=== PATIENT | male | born 1995 | race Caucasian/White ===

== ENCOUNTER 2018-09-12 06:13 | Observation (INO) | payer BC, OTHER ==
[2018-09-12] MEDS ORDERED: MORPHINE SULFATE 2 MG/ML SYRINGE IVP STA (06:27)
[2018-09-12] MEDS ORDERED: ASPIRIN 81 MG PO STA (06:27)
[2018-09-12] MEDS ORDERED: ONDANSETRON 4 MG/2 ML VIAL IVP STA (06:27)
[2018-09-12] MEDS ORDERED: NITROGLYCERIN SL TABS 0.4 MG TAB SUBLINGUAL STA (06:27)
--- NOTE | 2018-09-12 06:38 | ED ---
Chest Pain HPI - General Source: patient Mode of arrival: ambulatory Limitations: no limitations - History of Present Illness MD Complaint: chest pain -: hour(s) Onset: during rest Pain Location: substernal, left chest Pain Radiation: LUE, jaw/teeth Severity: moderate Quality: tightness, aching, heaviness Consistency: constant Improves With: nothing Worsens With: nothing Context: other (cocaine) Anginal Symptoms: nausea Treatments Prior to Arrival: none <Farida Garcia - Last Filed: 09/12/18 07:05> <Mohit Garcia - Last Filed: 09/12/18 07:50> - General Chief Complaint: Chest Pain Stated Complaint: chest pain Time Seen by Provider: 09/12/18 06:27 - History of Present Illness Initial Comments: Yo Ellison healthy 23-year-old male presents the emergency department today for evaluation of left-sided chest pain with radiation to his left arm and his jaw. Patient reports that he is usually awake all night because he works nights 3 keeps an eye schedule around 4:30 this morning he was sitting when he began feeling pain in his left shoulder and left chest pain radiating down his left arm and up into his jaw. This made the patient very anxious and he felt like his hands and feet were tingling. Patient became concerned that the pain may be due to his heart so decided to come to the ER for evaluation. Patient has no personal history of cardiac disease he does have a father uncles and grandmother who all had cardiac disease but nobody with any cardiac disease before age of 40. Patient does admit to cigarette smoking daily and occasional cocaine use including cocaine use in the past couple of days. (Farida Garcia) - Related Data Allergies Allergy/AdvReac Type Severity Reaction Status Date / Time No Known Allergies Allergy Verified 09/12/18 07:42 Review of Systems ROS Other: All systems not noted in ROS Statement are negative. <Farida Garcia - Last Filed: 09/12/18 07:05> ROS Other: All systems not noted in ROS Statement are negative. <Mohit Garcia - Last Filed: 09/12/18 07:50> ROS Statement: Those systems with pertinent positive or pertinent negative responses have been documented in the HPI. EKG Findings - EKG Comments: EKG Findings:: EKG was obtained for evaluation of chest pain, EKG obtained at 6:25 AM. EKG with a rate of 1:15 rhythm is narrow complex and regular consistent with sinus tachycardia. There are normal intervals, AR 138, QRS 94, QT 302, QTc is [address] depressions in V2 through V5 as well as T-wave inversion in lead 3. No acute ST elevations. <Farida Garcia - Last Filed: 09/12/18 07:05> Past Medical History Past Medical History: No Reported History History of Any Multi-Drug Resistant Organisms: None Reported Past Surgical History: No Surgical Hx Reported Past Psychological History: No Psychological Hx Reported Smoking Status: Current every day smoker Past Alcohol Use History: Occasional Past Drug Use History: Marijuana <Farida Garcia - Last Filed: 09/12/18 07:05> General Exam Limitations: no limitations <Farida Garcia - Last Filed: 09/12/18 07:05> - General Exam Comments Initial Comments: Physical Exam GENERAL: Patient is well-developed and well-nourished. Patient is nontoxic and well-hydrated Appears anxious and uncomfortable HENT: Normocephalic, Atraumatic. EYES: PERRL, EOMI PULMONARY: Unlabored respirations. No audible rales rhonchi or wheezing was noted. CARDIOVASCULAR: Tachycardic, regular Warm and well-perfused extremities ABDOMEN: Soft and nontender with normal bowel sounds. SKIN: Skin is clear with no lesions or rashes and otherwise unremarkable. Skin is clammy : Deferred NEUROLOGIC: Patient is alert and oriented x3. Moving all extremities spontaneously MUSCULOSKELETAL: Normal extremities with adequate strength and full range of motion. No lower extremity swelling or edema. No calf tenderness. PSYCHIATRIC: Anxious (Farida Garcia) Course <Farida Garcia - Last Filed: 09/12/18 07:05> Vital Signs 09/12/18 06:17 Temperature 99.7 F H Pulse Rate 102 H Respiratory 20 Rate Blood Pressure 151/82 O2 Sat by Pulse 99 Oximetry - Reevaluation(s) Reevaluation #1: Was reevaluated he has received all medications reports he's feeling a little bit better. 09/12/18 07:05 (Farida Garcia) Chest Pain MDM <Farida Garcia - Last Filed: 09/12/18 07:05> <Mohit Garcia - Last Filed: 09/12/18 07:50> - MDM The patient was seen and evaluated history was obtained from the patient the sinuses a 23-year-old male with recent cocaine use presenting with retrosternal left-sided chest pain with radiation to the arm and jaw on evaluation the patient appears uncomfortable he is clammy and tachycardic Labs and imaging were ordered EKG with ST depressions diffusely, no acute ST elevations Cardiac workup ordered ASA, Nitro, Zofran and Morphine ordered CBC/CMP with no significant abnormalities Coags and Trops pending at time of sign out Patient care signed out to Dr Garcia at shift change (Farida Garcia) Chest x-ray shows no acute abnormality (Mohit Garcia) Disposition <Farida Garcia - Last Filed: 09/12/18 07:05> Time of Disposition: 07:50 <Mohit Garcia - Last Filed: 09/12/18 07:50> Clinical Impression: Chest pain Disposition: ADMITTED IP TO THIS HOSP Referrals: Mohit Wills MD [Primary Care Provider] - 1-2 days
[2018-09-12 06:41] LABS: Basophils # (A) 0.1 k/uL (0-0.2); Basophils % (A) 1 %; Eosinophils # (A) 0.3 k/uL (0-0.7); Eosinophils % (A) 2 %; HCT 48.7 % (39.0-53.0); HGB 16.3 gm/dL (13.0-17.5); Lymphocytes # (A) 1.5 k/uL (1.0-4.8); Lymphocytes % (A) 11 %; MCH 29.5 pg (25.0-35.0); MCHC 33.5 g/dL (31.0-37.0); MCV 87.9 fL (80.0-100.0); Mean Platelet Volume 6.8; Monocytes # (A) 0.8 k/uL (0-1.0); Monocytes % (A) 6 %; Neutrophils # (A) 10.4 k/uL (1.3-7.7); Neutrophils % (A) 79 %; Platelet Count 268 k/uL (150-450); RBC 5.54 m/uL (4.30-5.90); RDW 14.4 % (11.5-15.5); WBC 13.2 k/uL (3.8-10.6)
[2018-09-12 06:50] LABS: ALT 57 U/L (21-72); AST 35 U/L (17-59); African American GFR (CKD) >90 (>60 ml/min/1.73 sqM); Albumin 4.7 g/dL (3.5-5.0); Alkaline Phosphatase 86 U/L (38-126); Anion Gap 9 mmol/L; Blood Urea Nitrogen 9 mg/dL (9-20); Calcium 9.6 mg/dL (8.4-10.2); Carbon Dioxide 24 mmol/L (22-30); Chloride 106 mmol/L (98-107); Glucose 137 mg/dL (74-99); Magnesium 2.1 mg/dL (1.6-2.3); Potassium 3.2 mmol/L (3.5-5.1); Sodium 139 mmol/L (137-145); Total Bilirubin 0.7 mg/dL (0.2-1.3); Total Protein 7.6 g/dL (6.3-8.2)
[2018-09-12] MEDS ORDERED: POTASSIUM CHLORIDE ER 20 MEQ TAB.ER PO STA (06:52)
[2018-09-12 06:54] LABS: Partial Thromboplastin Time 25.4 sec (22.0-30.0); Prothrombin Time 10.3 sec (9.0-12.0)
[2018-09-12 07:05] LABS: D-Dimer <0.17 mg/L FEU (<0.60)
[2018-09-12] MEDS ORDERED: SODIUM CHLORIDE 0.9% 1,000 ML IV ONE (07:05)
[2018-09-12 07:17] LABS: Appearance,Urine Clear (Clear); Bilirubin,Urine Negative (Negative); Blood,Urine Negative (Negative); Color,Urine Light Yellow; Glucose,Urine (UA) Negative (Negative); Ketones,Urine Negative (Negative); Leukocyte Esterase,Urine Negative (Negative); Nitrite,Urine Negative (Negative); Protein,Urine Negative (Negative); Specific Gravity,Urine 1.005 (1.001-1.035); Urobilinogen,Urine <2.0 mg/dL (<2.0)
--- NOTE | 2018-09-12 07:19 | XR ---
EXAM: XR Chest, 2 Views CLINICAL HISTORY: Chest pain. TECHNIQUE: Frontal and lateral views of the chest. COMPARISON: No relevant prior studies available. FINDINGS: Lungs: No focal consolidation. No evidence of pulmonary edema. Pleural space: Unremarkable. No pneumothorax. Heart: Unremarkable. No cardiomegaly. Mediastinum: Unremarkable. Bones/joints: Unremarkable. IMPRESSION: No radiographic evidence of acute cardiopulmonary process.
[2018-09-12 07:36] LABS: Amphetamine Screen,Urine Not Detected (NotDetected); Barbiturate Screen,Urine Not Detected (NotDetected); Benzodiazepines Screen,Urine Not Detected (NotDetected); Cocaine Screen,Urine Detected (NotDetected); Methadone Screen, Urine Not Detected (NotDetected); Opiate Screen,Urine Not Detected (NotDetected); Oxycodone Screen, Urine Not Detected (NotDetected); Phencyclidine Screen,Urine Not Detected (NotDetected); Tricyclic Antidepressant,Urine Not Detected (NotDetected); Urn Cannabinoid Scrn Detected (NotDetected)
[2018-09-12] MEDS ORDERED: NITROGLYCERIN SL TABS 0.4 MG TAB SUBLINGUAL PRN (07:50)
[2018-09-12 08:15] VITALS: RESP 18; TEMP 98.1
[2018-09-12 11:28] VITALS: BP 108/72; PULSE 84
[2018-09-12] MEDS ORDERED: NITROGLYCERIN OINT 1 INCH/GM PACKET TOPICAL SCH (12:00)
[2018-09-13] MEDS ORDERED: ASPIRIN 325 MG TAB PO SCH (09:00)
--- NOTE | 2018-09-18 20:28 | DS ---
DISCHARGE SUMMARY HISTORY AND PHYSICAL AND DISCHARGE SUMMARY: DATE OF ADMISSION: 09/12/2018 DATE LEFT AGAINST MEDICAL ADVICE: 09/12/2018 HOSPITAL COURSE: This patient was admitted from the ER and left AGAINST MEDICAL ADVICE before he could be seen anybody . Please refer to the ER notes for any more details. Patient was neither seen nor examined by me. This is both a history and physical and a discharge summary on this patient. MMODL / IJN: [id number] /
== END 2018-09-12 11:27 | disposition left against medical advice (07) ==
LOC: EC 06:13 → 1SOBS 07:59
PROVIDERS: ADMIT Hospitalist; ATTEND Hospitalist
DX: R07.89 Other chest pain (principal); R00.0 Tachycardia, unspecified; R11.0 Nausea; F14.90 Cocaine use, unspecified, uncomplicated; M25.512 Pain in left shoulder; F41.9 Anxiety disorder, unspecified; R23.1 Pallor; F17.210 Nicotine dependence, cigarettes, uncomplicated; Z82.49 Family history of ischemic heart disease and other diseases of the circulatory system; Z53.21 Procedure and treatment not carried out due to patient leaving prior to being seen by health care provider
CPT/HCPCS: 96361; 96374; 96375; 99285; 36415; 93005; 85379; 80053; 83735; 84484; 85025; 85610; 85730; 81003; 80306; 71046; G0378; J2405; J2270